=== PATIENT | male | born 1980 | race Caucasian/White ===

== ENCOUNTER 2019-05-20 01:24 | Emergency (ER) | payer OTHER ==
[~2019-05-20] VITALS: Ht 190.5 cm; Wt 106.6 kg
[2019-05-20] MEDS ORDERED: NEOMY/BACITRA/POLYMYXIN B OINT UD PACKET TP ONE ×2 (01:45→01:46)
[2019-05-20] MEDS ORDERED: TDAP DIPH,PERTUSS,TET VAC/PF 0.5 ML DISP.SYRIN IM ONE ×2 (01:50→02:30)
--- NOTE | 2019-05-20 01:57 | NUR ---
Patient discharged to home in stable conditon. Written and verbal after care instructions given. Patient verbalizes understanding of instructions. Pt ambulated out of ER with steady gait, no acute signs of distress, VSS, all belongings taken.
[2019-05-20 02:26] VITALS: BP 147/86
== END 2019-05-20 02:26 | disposition home or self-care (01) ==
LOC: ER 01:35
DX: S00.01XA Abrasion of scalp, initial encounter (principal); W22.8XXA Striking against or struck by other objects, initial encounter; Y93.89 Activity, other specified; Y92.89 Other specified places as the place of occurrence of the external cause; Y99.8 Other external cause status
CPT/HCPCS: 90715; A4663